=== PATIENT | female | born 1985 | race Caucasian/White ===

== ENCOUNTER 2018-02-12 02:30 | Emergency (ER) | payer SELFPAY ==
[~2018-02-12] VITALS: Ht 162.6 cm; Wt 101.6 kg
[~2018-02-12 02:30] MED LIST: NAPROSYN500 M1 ORAL
[2018-02-12 02:56] LABS: BILIRUBIN, URINE NEGATIVE (NEGATIVE); COLOR,URINE PALE YELLOW; GLUCOSE, URINE (UA) NEGATIVE (NEGATIVE); KETONES,URINE NEGATIVE (NEGATIVE); LEUKOCYTE ESTERASE ,URINE 3+ (NEGATIVE); NITRITE,URINE POSITIVE (NEGATIVE); PH,URINE 6.5 (4.5-8.0); PROTEIN,URINE NEGATIVE (NEGATIVE); UROBILINOGEN,URINE NORMAL MG/DL (0.0-1.0)
[2018-02-12 03:05] LABS: APPEARANCE,URINE CLOUDY
[2018-02-12] MEDS ORDERED: Cephalexin 500mg cap ORAL ONE (03:15)
--- NOTE | 2018-02-12 03:17 | Emergency Room Report ---
History of Present Illness General Chief Complaint: Female Urogenital Problems Source: Patient Present Illness HPI Patient presents with complaints of discomfort when she urinates She feels that there is a foul order Also reports that she was in the shower earlier today when she slipped falling to her right side Hitting her elbow Also had pain to the mid upper back and also the right lower back area Denies any focal weakness denies any chest pain or shortness of breath Allergies: Coded Allergies: No Known Allergies (Unverified , 01/05/14) Patient History Past Medical History: see triage record Pertinent Family History: none Last Menstrual Period: 2 weeks ago Reviewed Nursing Documentation: PMH: Agreed; PSxH: Agreed Nursing Documentation-PMH History Of Psychiatric Problem: Yes - ANXIETY Review of Systems All Other Systems: negative except mentioned in HPI Physical Exam Vital Signs Date Time Temp Pulse Resp B/P (MAP) Pulse Ox O2 Delivery O2 Flow Rate FiO2 02/12/18 02:35 97.5 78 16 137/78 98 Room Air 97.5 Sp02 EP Interpretation: reviewed, normal General Appearance: well appearing, no apparent distress Head: normocephalic, atraumatic Eyes: bilateral eye PERRL, bilateral eye EOMI ENT: hearing grossly normal, normal pharynx, TMs + canals normal, uvula midline Neck: full range of motion, supple, no meningismus, no bony tend Respiratory: lungs clear, normal breath sounds, no rhonchi, no respiratory distress, no retraction, no accessory muscle use Cardiovascular #1: normal peripheral pulses, regular rate, rhythm, no edema, no gallop, no JVD, no murmur Gastrointestinal: normal bowel sounds, non tender, soft, no mass, no organomegaly, non-distended, no guarding, no hernia, no pulsatile mass, no rebound Genitourinary: no CVA tenderness Musculoskeletal: normal inspection Neurologic: oriented x3, responsive, editor map III-XII nml as tested, motor strength/ tone normal, sensory intact Psychiatric: mood/affect normal Skin: normal color, no rash, warm/dry, palpation normal Lymphatic: normal inspection, no adenopathy Medical Decision Making Diagnostic Impression: Primary Impression: UTI (urinary tract infection) Additional Impression: Contusion ER Course Patient's urine sample does show infectious pathology Clinical exam does not reveal any obvious likely acute fractures Patient's right elbow is freely mobile no edema or contusion Lower back also shows no signs of midline tenderness Patient was provided with medication here and is stable for close outpatient follow-up Labs Test 02/12/18 02:33 Urine Color Pale yellow Urine Appearance Cloudy Urine pH 6.5 (4.5-8.0) Urine Specific [place] 1.015 (1.005-1.035) Urine Protein Negative (NEGATIVE) Urine Glucose (UA) Negative (NEGATIVE) Urine Ketones Negative (NEGATIVE) Urine Blood Negative (NEGATIVE) Urine Nitrite Positive (NEGATIVE) Urine Bilirubin Negative (NEGATIVE) Urine Urobilinogen Normal MG/DL (0.0-1.0) Urine Leukocyte Esterase 3+ (NEGATIVE) Urine RBC 2-4 /HPF (0 - 2) Urine WBC Tntc /HPF (0 - 2) Urine Squamous Epithelial Cells Moderate /LPF (NONE/OCC) Urine Bacteria Many /HPF (NONE) Urine HCG, Qualitative Negative (NEGATIVE) Last Vital Signs Date Time Temp Pulse Resp B/P (MAP) Pulse Ox O2 Delivery O2 Flow Rate FiO2 02/12/18 02:35 97.5 78 16 137/78 98 Room Air 97.5 Status: improved Disposition: HOME, SELF-CARE Condition: Improved Additional Instructions: Patient is provided with the discharge instructions notified to follow up with primary doctor in the next 2-3 days otherwise return to the er with any worsening symptoms. Please note that this report is being documented using [email or web address] technology. This can lead to erroneous entry secondary to incorrect interpretation by the dictating instrument. Hemal Mcguire DO Feb 12, 2018 03:17
[2018-02-12] MEDS ORDERED: IBUPROFEN600 MG ORAL (03:48)
[2018-02-12] MEDS ORDERED: CEPHALEXIN500 MG ORAL (03:48)
[2018-02-12] MEDS ORDERED: Tylenol #3 tab (300mg/30mg) ORAL ONE (04:15)
[2018-02-12] MEDS ORDERED: Tylenol #3 tab (300mg/30mg) ONE (04:16)
[2018-02-12 04:30] VITALS: BP 137/78
[2018-02-12] MEDS ORDERED: Norco 5mg/325mg tab ORAL ONE (04:30)
[2018-02-12 04:43] VITALS: BP 137/78
== END 2018-02-12 04:30 | disposition home or self-care (01) ==
LOC: EMR 02:46
DX: N39.0 Urinary tract infection, site not specified (principal); S30.0XXA Contusion of lower back and pelvis, initial encounter; W18.2XXA Fall in (into) shower or empty bathtub, initial encounter; Y93.89 Activity, other specified; Y92.012 Bathroom of single-family (private) house as the place of occurrence of the external cause; F41.9 Anxiety disorder, unspecified
CPT/HCPCS: 81003; 81025; 87086; 87181; 99283

== ENCOUNTER 2018-04-17 23:30 | Emergency (ER) | payer SELFPAY ==
[~2018-04-17] VITALS: Ht 162.6 cm; Wt 77.1 kg
[~2018-04-17 23:30] MED LIST changes: +CEPHALEXIN500 MG ORAL; +IBUPROFEN600 MG ORAL
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
[2018-04-18 01:25] VITALS: BP 119/84
[2018-04-18] MEDS ORDERED: HYDROCODON-ACE1 EA15 ORAL (01:56)
[2018-04-18] MEDS ORDERED: CEPHALEXIN500 MG ORAL (01:56)
[2018-04-18] MEDS ORDERED: IBUPROFEN600 MG ORAL (01:56)
[2018-04-18] MEDS ORDERED: HYDROmorphone 1mg/ml Carpuject IM ONE (02:00)
[2018-04-18 02:24] VITALS: BP 126/64
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
== END 2018-04-18 02:34 | disposition home or self-care (01) ==
LOC: EMR 04-18 00:30
DX: S62.633B Displaced fracture of distal phalanx of left middle finger, initial encounter for open fracture (principal); S61.315A Laceration without foreign body of left ring finger with damage to nail, initial encounter; S20.219A Contusion of unspecified front wall of thorax, initial encounter; V43.52XA Car driver injured in collision with other type car in traffic accident, initial encounter; Y92.410 Unspecified street and highway as the place of occurrence of the external cause
CPT/HCPCS: 12001; 73140; 96372; 99283; J1170

== ENCOUNTER 2018-05-22 00:52 | Emergency (ER) | payer MEDICAID ==
[~2018-05-22] VITALS: Ht 162.6 cm; Wt 90.7 kg
[~2018-05-22 00:52] MED LIST changes: +HYDROCODON-ACE1 EA15 ORAL
[2018-05-22] MEDS ORDERED: UNOBMED (01:02)
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
[2018-05-22 01:30] VITALS: BP_SYST 128; BP_SYST 132; BP_DIAS 83; BP_DIAS 87
[2018-05-22] MEDS ORDERED: Norco 5mg/325mg tab ORAL ONE (01:30)
[2018-05-22] MEDS ORDERED: Albuterol ud Inhalation HHN ONE ×2 (01:30)
[2018-05-22] MEDS ORDERED: IBUPROFEN600 MG ORAL (01:40)
[2018-05-22] MEDS ORDERED: PREDNISONE20 MG ORAL (01:40)
[2018-05-22] MEDS ORDERED: ALBUTEROL SULF8.5 GM INH (01:40)
[2018-05-22 02:10] VITALS: BP_SYST 126; BP_SYST 133; BP_DIAS 81; BP_DIAS 82
--- NOTE | 2018-05-22 09:20 | Diagnostic Imaging Report ---
Indication: Shortness of breath Technique: One view of the chest Comparison: 07/21/2009 Findings: Lungs and pleural spaces are clear. Heart size is upper limits of normal. No significant interim change Impression: No acute process
== END 2018-05-22 02:22 | disposition home or self-care (01) ==
LOC: EMR 01:12
DX: J20.9 Acute bronchitis, unspecified (principal); I10 Essential (primary) hypertension; Z48.00 Encounter for change or removal of nonsurgical wound dressing
CPT/HCPCS: 71045; 94640; 94664; 99284; J7512